=== PATIENT | male | born 1970 | race Caucasian/White ===

== ENCOUNTER 2017-05-07 15:27 | Inpatient (IN) | payer MEDICAID ==
[~2017-05-07] VITALS: Ht 165.1 cm; Wt 76.7 kg
[2017-05-07 15:42] VITALS: BP 159/85
--- NOTE | 2017-05-07 16:00 | NUR ---
PATIENT TO BED 4 AT THIS TIME.
--- NOTE | 2017-05-07 16:29 | NUR ---
PATIENT PRESENTS TO ED WITH left testicular pain denies trauma--swelling redness noted . PT STATES . DENIES N/V/D; SKIN IS PINK/WARM/DRY; AAOX4 WITH EVEN AND STEADY GAIT; LUNGS CLEAR BL; HR EVEN AND REGULAR; PT DENIES ANY FEVER, CP, SOB, OR COUGH AT THIS TIME; PATIENT STATES PAIN OF 8/10 AT THIS TIME; VSS; PATIENT POSITIONED FOR COMFORT; HOB ELEVATED; BEDRAILS UP X2; BED DOWN. ER MD MADE AWARE OF PT STATUS.
[2017-05-07] MEDS ORDERED: KETOROLAC 60 MG/2 ML VIAL IM ONE (16:35)
--- NOTE | 2017-05-07 16:47 | NUR ---
medicated for pain control--pt continues to wait for ultrasound read
[2017-05-07 17:15] LABS: CARBON DIOXIDE 25.1 mmol/L (21-32); POTASSIUM 4.1 mmol/L (3.5-5.1)
[2017-05-07 17:34] LABS: BASOPHILS # (AUTO) 0.2 K/uL (0.00-0.22); BASOPHILS % (AUTO) 1.3 % (0.0-2.0); EOSINOPHILS % (AUTO) 0.1 % (0.0-4.0); HEMATOCRIT 46.5 % (36-52); HEMOGLOBIN 15.3 g/dL (12.0-18.0); LYMPHOCYTES # (AUTO) 1.6 K/uL (2.0-11.5); MEAN CORPUSCULAR HEMOGLOBIN 30 pg (27-31); MEAN CORPUSCULAR HGB CONC 33 g/dL (33-37); MEAN CORPUSCULAR VOLUME 91 fL (80-94); MONOCYTES # (AUTO) 1.2 K/uL (0.8-1.0); MONOCYTES % (AUTO) 7.5 % (1.7-9.3); NEUTROPHILS # (AUTO) 12.9 K/uL (1.8-7.7); NEUTROPHILS % (AUTO) 81.1 % (42.2-75.2); PLATELET COUNT (AUTO) 217 K/uL (140-450); RED BLOOD CELL COUNT(AUTO) 5.11 MIL/uL (4.20-6.10); WHITE BLOOD COUNT (AUTO) 15.9 K/uL (4.8-10.8)
[2017-05-07] MEDS ORDERED: NACL 0.9% 1,000 ML IV ONE (17:55)
[2017-05-07] MEDS ORDERED: CLINDAMYCIN 900 MG in DEXTROSE 5% 100 ML IV ONE (17:55)
[2017-05-07] MEDS: NACL 0.9% 1,000 ML IV SCH (18:07)
[2017-05-07] MEDS ORDERED: DOCUSATE SODIUM 100 MG GELCAP PO PRN (18:10)
[2017-05-07] MEDS ORDERED: ONDANSETRON 4 MG/2 ML VIAL IM/IVP PRN (18:10)
[2017-05-07] MEDS ORDERED: CLINDAMYCIN 900 MG/6 ML VIAL IV ONE (18:16)
--- NOTE | 2017-05-07 18:20 | NUR ---
denies pain at this time---dispo is admission-
[2017-05-07 18:33] LABS: PROTHROMBIN TIME 9.7 secs (10.8-13.4)
[2017-05-07 18:49] LABS: CHOL/HDL RATIO 5.4 (1-4.5); FREE T4 (FREE THYROXINE) 0.92 ng/dL (0.76-1.46); PHOSPHORUS 3.3 mg/dL (2.5-4.9); THYROID STIMULATING HORMONE 0.47 uIU/mL (0.34-3.74)
[2017-05-07 19:07] LABS: APPEARANCE,URINE CLEAR (CLEAR); BILIRUBIN,URINE NEGATIVE (NEGATIVE); BLOOD, URINE TRACE-L (NEGATIVE); COLOR,URINE YELLOW (YELLOW); LEUKOCYTE ESTERASE ,URINE NEGATIVE (NEGATIVE); NITRITE, URINE NEGATIVE (NEGATIVE); UGLUCOSE 3+ (NEGATIVE)
--- NOTE | 2017-05-07 19:07 | NUR ---
Pt report given to JANE SAL. Transfer of care at this time TO TELE RM [id number]
[2017-05-07 19:30] LABS: RBC,URINE 0-5 (RARE) /HPF (0-5); WBC,URINE 0-5 (RARE) /HPF (0-5)
[2017-05-07 20:00] VITALS: BP 140/76
--- NOTE | 2017-05-07 20:00 | NUR ---
PATIENT ADMITTED TO THE UNIT FROM ED. BROUGHT VIA GURNEY. PATIENT ABLE TO AMBULATE TO BED. PATIENT IS AAOX4 ON ROOM AIR, NO SOB OR SIGN OF DISTRESS, IV TO LEFT FA PATENT AND INTACT, SKIN INTACT WITH SCROTAL SWELLING AND REDNESS. PATIENT DENIES PAIN AT THIS TIME. ORIENTED PATIENT TO ROOM AND CALL LIGHT. DISCUSSED PLAN OF CARE WITH PATIENT, PT VERBALIZED UNDERSTANDING. CALL LIGHT WITHIN REACH. WILL CONTINUE TO MONITOR.
[2017-05-07] MEDS ORDERED: LEVOFLOXACIN 500 MG/D5W PREMIX 100 ML IV SCH (21:00)
[2017-05-07] MEDS ORDERED: BLOOD GLUCOSE MONITORING 1 DEV DEV FS SCH (21:00)
--- NOTE | 2017-05-07 21:00 | NUR ---
DR CUELLAR REQUESTED TO CHECK PATIENTS BLOOD SUGAR, RESULTED 250. PER DR, WILL ORDER TO DO BLOOD SUGAR CHECKS Q1H. WILL CONTINUE TO MONITOR
[2017-05-07] MEDS: BLOOD GLUCOSE MONITORING 1 DEV DEV FS SCH ×2 (21:14→22:06)
--- NOTE | 2017-05-07 21:40 | NUR ---
IV ABX ADMINISTERED, PATIENT RESTING IN BED, NO SIGN OF DISTRESS. CALL LIGHT WITHIN REACH. WILL CONTINUE TO MONITOR
[2017-05-07] MEDS: INSULIN LISPRO SLIDING SCALE 100 UNITS/ML VIAL SUBQ PRN (22:08)
--- NOTE | 2017-05-07 22:15 | NUR ---
BLOOD SUGAR CHECK 269 ADMINISTERED INSULIN PER MD POLO SANDHU
--- NOTE | 2017-05-07 23:15 | NUR ---
MD CUELLAR TO CHANGE ORDERS FOR BLOOD SUGARS TO Q2H AND TO LET HER KNOW WHEN BS IS LESS THAN 200. WILL F/U WITH ORDERS.
[2017-05-08] VITALS: BP 136/71
--- NOTE | 2017-05-08 00:10 | NUR ---
VITALS STABLE, NO SIGN OF DISTRESS, CALL LIGHT WITHIN REACH. WILL CONTINUE TO MONITOR.
[2017-05-08] MEDS: BLOOD GLUCOSE MONITORING 1 DEV DEV FS SCH ×7 (01:03→21:53)
[2017-05-08] MEDS: INSULIN LISPRO SLIDING SCALE 100 UNITS/ML VIAL SUBQ PRN ×6 (01:04→22:00)
--- NOTE | 2017-05-08 01:10 | NUR ---
BS CHECK-239, DR CUELLAR SAID TO GO AHEAD AND GIVE ANOTHER DOSE OF INSULIN. ADMINISTERED PER MD ORDER AND ORDERED SLIDING SCALE.
[2017-05-08] MEDS: NACL 0.9% 1,000 ML IV SCH ×6 (02:27→18:21)
[2017-05-08 04:00] VITALS: BP 149/85
--- NOTE | 2017-05-08 04:15 | NUR ---
VITAL SIGNS STABLE, NO SOB OR SIGN OF DISTRESS, CALL LIGHT WITHIN REACH. WILL CONTINUE TO MONITOR
[2017-05-08 06:25] LABS: BASOPHILS # (AUTO) 0.1 K/uL (0.00-0.22); BASOPHILS % (AUTO) 0.7 % (0.0-2.0); EOSINOPHILS # (AUTO) 0.1 K/uL (0-0.4); EOSINOPHILS % (AUTO) 0.3 % (0.0-4.0); LYMPHOCYTES # (AUTO) 1.8 K/uL (2.0-11.5); LYMPHOCYTES % (AUTO) 10.3 % (20.5-51.1); MEAN CORPUSCULAR HEMOGLOBIN 30 pg (27-31); MEAN CORPUSCULAR HGB CONC 33 g/dL (33-37); MEAN CORPUSCULAR VOLUME 91 fL (80-94); MONOCYTES # (AUTO) 1.8 K/uL (0.8-1.0); MONOCYTES % (AUTO) 10.2 % (1.7-9.3); NEUTROPHILS # (AUTO) 13.7 K/uL (1.8-7.7); NEUTROPHILS % (AUTO) 78.5 % (42.2-75.2); PLATELET COUNT (AUTO) 213 K/uL (140-450); RED CELL DISTRIBUTION WIDTH 11.9 % (11.6-13.7)
[2017-05-08 06:49] LABS: ANION GAP 16.9 (8-16); CARBON DIOXIDE 22.6 mmol/L (21-32); CREATININE 0.8 mg/dL (0.7-1.3); POTASSIUM 3.5 mmol/L (3.5-5.1)
--- NOTE | 2017-05-08 07:30 | NUR ---
ENDORSED PATIENT TO DAY RN AT BEDSIDE, PATIENT IN STABLE CONDITION
--- NOTE | 2017-05-08 07:31 | NUR ---
RECEIVED HANDOFF REPORT FROM PM RN. PATIENT A&OX4. PATIENT DENIES PAIN. IV SITE PATENT AND INTACT. NO SIGNS OR SYMPTOMS OF ACUTE DISTRESS NOTED. SAFETY MEASURES ENSURED. CALL LIGHT WITHIN REACH. WILL CONTINUE TO MONITOR.
[2017-05-08 07:36] LABS: WHITE BLOOD COUNT (AUTO) 17.5 K/uL (4.8-10.8)
[2017-05-08 08:00] VITALS: BP 145/86
[2017-05-08 08:34] LABS: T4 (THYROXINE) 6.2 ug/dL (4.5-12.0)
[2017-05-08] MEDS ORDERED: DEXTROSE 50% 50 ML SYR IVP PRN (08:40)
[2017-05-08] MEDS ORDERED: CLINDAMYCIN 900 MG in DEXTROSE 5% 100 ML IV SCH (09:00)
--- NOTE | 2017-05-08 09:05 | NUR ---
PATIENT GIVEN AM MEDS WITH EDUCATION. PATIENT VERBALIZED UNDERSTANDING. PATIENT DENIES PAIN. FAMILY AT BEDSIDE. NO SIGNS OR SYMPTOMS OF ACUTE DISTRESS NOTED. CALL LIGHT WITHIN REACH WILL CONTINUE TO MONITOR.
[2017-05-08] MEDS: LACTOBACILLUS RHAMNOSUS GG 1 EACH CAP PO SCH (09:19)
--- NOTE | 2017-05-08 09:50 | NUR ---
PATIENT HAS BEEN SCREENED AND CATEGORIZED HIGH NUTRITION RISK. PATIENT WILL BE SEEN WITHIN 1-2 DAYS OF ADMISSION. 05/08/17-05/09/[address]
--- NOTE | 2017-05-08 10:43 | NUR ---
05/08/17 RD INITIAL ASSESSMENT COMPLETED PLEASE REFER TO NUTRITION ASSESSMENT UNDER CARE ACTIVITY FOR ESTIMATED NUTRITIONAL NEEDS. 1. CONTINUE 60G CONSISTENT CARBOHYDRATE DIET 2. PROVIDE NUTRITION THERAPY EDUCATION NEEDED 3. RD TO FOLLOW-UP 3-5 DAYS, MODERATE RISK REYNA DIAZ RD
--- NOTE | 2017-05-08 11:12 | NUR ---
PATIENT AWAKE AND ALERT. PATIENT DENIES PAIN. FAMILY AT BEDSIDE. NO SIGNS OR SYMPTOMS OF ACUTE DISTRESS NOTED. CALL LIGHT WITHIN REACH. WILL CONTINUE TO MONITOR.
[2017-05-08 12:00] VITALS: BP 141/82
--- NOTE | 2017-05-08 13:50 | NUR ---
PATIENT SLEEPING. NO SIGNS OR SYMPTOMS OF ACUTE DISTRESS NOTED. CALL LIGHT WITHIN REACH. WILL CONTINUE TO MONITOR.
[2017-05-08 14:05] LABS: BILIRUBIN,DIRECT 0.1 mg/dL (0.0-0.3); TOTAL BILIRUBIN 0.7 mg/dL (0.0-1.0)
[2017-05-08] MEDS: MORPHINE SULFATE 2 MG/ML SYR IVP PRN (15:46)
[2017-05-08 16:00] VITALS: BP 143/81
--- NOTE | 2017-05-08 17:21 | NUR ---
PATIENT AWAKE AND ALERT. PATIENT DENIES PAIN. FAMILY AT BEDSIDE. NO SIGNS OR SYMPTOMS OF ACUTE DISTRESS NOTED. CALL LIGHT WITHIN REACH. WILL CONTINUE TO MONITOR.
[2017-05-08] MEDS: CLINDAMYCIN 600 MG in DEXTROSE 5% 50 ML IV SCH (18:19)
--- NOTE | 2017-05-08 19:23 | NUR ---
ENDORSED PLAN OF CARE TO PM RN. PATIENT STABLE. NO SIGNS OR SYMPTOMS OF ACUTE DISTRESS NOTED. CALL LIGHT WITHIN REACH.
--- NOTE | 2017-05-08 19:24 | NUR ---
RECIEVED REPORT FROM DAY NURSE, PT IN STABLE CONDITION. PT IS AAOX4, PT IS ON RA. PT HAS IV TO L FA 20G, PATENT AND INTACT, INFUSING WELL. PT HAS CELLULITIS OF LEFT TESTICLE, PTS RESPIRATIONS ARE EVEN AND UNLABORED. BOWEL SOUNDS PRESENT IN ALL FOUR QUADRANTS. INITIAL ASSESSMENT COMPLETED, PLAN OF CARE DISCUSSED WITH PT, PT VERBALIZED UNDERSTANDING. ALL SAFETY PRECAUTIONS MET, CALL LIGHT WITHIN REACH, WILL CONTINUE TO MONITOR.
[2017-05-08 20:00] VITALS: BP 154/91
[2017-05-08 20:27] LABS: BARBITURATE, URINE NEG. ng/ml (NEG <=200); BENZODIAZEPINE, URINE NEG. ng/mL (NEG <=200); CANNABINOID, URINE NEG. ng/mL (NEG <=50); COCAINE, URINE NEG. ng/mL (NEG <=300); OPIATE, URINE NEG. ng/mL (NEG <=2000); PHENCYCLIDINE SCREEN,URINE NEG. ng/mL (NEG <=25)
[2017-05-08] MEDS: LEVOFLOXACIN 750 MG/D5W PREMIX 150 ML IV SCH (21:44)
[2017-05-08] MEDS: ACETAMINOPHEN 325 MG TAB PO PRN (22:03)
--- NOTE | 2017-05-08 22:04 | NUR ---
PT HAS FEVER OF 100.8, MEDICATION ADMINISTERED PER MD ORDERS, ICE PACKS IN PLACE, WILL REASSESS.
--- NOTE | 2017-05-08 23:04 | NUR ---
REASSESSED PTS TEMP. PT TEMP 98.3, AFEBRILE. WILL CONTINUE TO MONITOR.
[2017-05-09] VITALS: BP 130/77
[2017-05-09] MEDS: CLINDAMYCIN 600 MG in DEXTROSE 5% 50 ML IV SCH ×3 (00:08→06:20)
--- NOTE | 2017-05-09 00:10 | NUR ---
PTS VITALS STABLE, NO S/S OF DISTRESS NOTED. PT RESTING IN BED COMFORTABLE. ALL SAFETY PRECAUTIONS MET, CALL LIGHT WITHIN REACH, WILL CONTINUE TO MONITOR.
--- NOTE | 2017-05-09 03:30 | NUR ---
PT RESTING COMFORTABLY IN BED. NO S/S OF DISTRESS NOTED. PT IS AFEBRILE. CALL LIGHT WITHIN REACH, ALL SAFETY PRECAUTIONS MET, WILL CONTINUE TO MONITOR.
[2017-05-09 04:00] VITALS: BP 138/57
[2017-05-09] MEDS: BLOOD GLUCOSE MONITORING 1 DEV DEV FS SCH ×4 (06:17→20:37)
[2017-05-09 06:18] LABS: BASOPHILS # (AUTO) 0.1 K/uL (0.00-0.22); BASOPHILS % (AUTO) 0.4 % (0.0-2.0); EOSINOPHILS # (AUTO) 0.1 K/uL (0-0.4); EOSINOPHILS % (AUTO) 0.5 % (0.0-4.0); HEMATOCRIT 38.6 % (36-52); HEMOGLOBIN 13.3 g/dL (12.0-18.0); LYMPHOCYTES # (AUTO) 1.5 K/uL (2.0-11.5); LYMPHOCYTES % (AUTO) 9.3 % (20.5-51.1); MEAN CORPUSCULAR HEMOGLOBIN 31 pg (27-31); MEAN CORPUSCULAR HGB CONC 34 g/dL (33-37); MEAN CORPUSCULAR VOLUME 90 fL (80-94); MONOCYTES # (AUTO) 1.4 K/uL (0.8-1.0); MONOCYTES % (AUTO) 8.3 % (1.7-9.3); NEUTROPHILS # (AUTO) 13.3 K/uL (1.8-7.7); NEUTROPHILS % (AUTO) 81.5 % (42.2-75.2); PLATELET COUNT (AUTO) 229 K/uL (140-450); RED BLOOD CELL COUNT(AUTO) 4.28 MIL/uL (4.20-6.10)
[2017-05-09 06:39] LABS: ANION GAP 18.2 (8-16); CARBON DIOXIDE 20.5 mmol/L (21-32); CREATININE 0.7 mg/dL (0.7-1.3); MAGNESIUM 1.9 mg/dL (1.8-2.4); PHOSPHORUS 3.3 mg/dL (2.5-4.9); POTASSIUM 3.7 mmol/L (3.5-5.1)
[2017-05-09] MEDS: INSULIN LISPRO SLIDING SCALE 100 UNITS/ML VIAL SUBQ PRN ×4 (06:52→20:39)
[2017-05-09 07:14] LABS: WHITE BLOOD COUNT (AUTO) 16.4 K/uL (4.8-10.8)
--- NOTE | 2017-05-09 07:32 | NUR ---
ENDORSED PLAN OF CARE TO AM NURSE AT BEDSIDE, PT IN STABLE CONDITION.
--- NOTE | 2017-05-09 07:33 | NUR ---
RECEIVED REPORT FROM SPEECH LANGUAGE PATHOLOGY ASSISTANT NURSE AT BEDSIDE FOR CONTINUITY OF CARE. PT IS AWAKE AND ORIENTED. INTRODUCED SELF AND UPDATED BOARD. PT HAS NO COMPLAINTS AT THIS TIME. WILL CONTINUE TO WITH PLANNED CARE AND MONITOR PT.
[2017-05-09 08:00] VITALS: BP 140/85
--- NOTE | 2017-05-09 08:00 | NUR ---
APPLIED SCROTAL SUPPORT FOR PT TO RELIEVE PAIN IN SCROTUM. PT STATED PAIN IS PRESENT WHEN HE AMBULATES. PT GOT UP TO USE BATHROOM. VS: WNL. PT HAS NOT COMPLAINTS AT THIS TIME WILL CONTINUE TO MONITOR.
[2017-05-09] MEDS: metFORMIN 500 MG TAB PO SCH ×2 (08:42→17:01)
[2017-05-09] MEDS: ECOTRIN 81 MG TABEC PO SCH (08:43)
[2017-05-09] MEDS: LACTOBACILLUS RHAMNOSUS GG 1 EACH CAP PO SCH (08:44)
[2017-05-09] MEDS: ATORVASTATIN 20 MG TAB PO SCH (08:45)
[2017-05-09] MEDS: INSULIN DETEMIR 100 UNITS/ML 10 ML VIAL SUBQ SCH (09:08)
[2017-05-09] MEDS: NACL 0.9% 1,000 ML IV SCH (11:09)
[2017-05-09 12:00] VITALS: BP 167/96
[2017-05-09] MEDS: MORPHINE SULFATE 2 MG/ML SYR IVP PRN (13:37)
--- NOTE | 2017-05-09 13:37 | NUR ---
CHECKED ON PT IN ROOM. PT GOT UP TO USE BATHROOM. STATED HE HAD A HEADACHE AND PAIN ON SCROTUM 03/26. ADMINISTERED MORPHINE FOR PAIN. PT TOLERATED WELL. PT IS RESTING IN BED NOW. WILL CONTINUE TO MONITOR.
--- NOTE | 2017-05-09 15:15 | NUR ---
PT'S FAMILY MEMBER IS AT BEDSIDE. INSTRUCTED PT TO USE INCENTIVE SPIROMETER. PT DEMONSTRATED TEACHING AND VERBALIZED UNDERSTANDING OF INCENTIVE SPIROMETER. PT DENIES PAIN AT THIS TIME. WILL CONTINUE TO MONITOR.
[2017-05-09 16:00] VITALS: BP 152/90
[2017-05-09] MEDS: ACETAMINOPHEN 325 MG TAB PO PRN (17:15)
--- NOTE | 2017-05-09 17:20 | NUR ---
PT HAD TEMP 100.2 F. ADMINISTERED TYLENOL FOR FEVER. PT'S BS WAS 211. ADMINISTERED 4 UNITS OF INSULIN PER SLIDING SCALE. PT TOLERATED MEDS WELL. PT'S FAMILY MEMBER IS AT BEDSIDE. PT CONTINUED TO USE INCENTIVE SPIROMETER Q1H DEMONSTRATED. NO OTHER COMPLAINTS AT THIS TIME. WILL CONTINUE TO MONITOR.
--- NOTE | 2017-05-09 18:34 | NUR ---
RECHECKED TEMP 97.8 F. PT HAS NO FEVER AT THIS TIME. PT DENIES PAIN. RESTING COMFORTABLY IN BED WITH VISITORS AT BEDSIDE.
--- NOTE | 2017-05-09 19:05 | NUR ---
ENDORSED PT TO ASBESTOS HANDLER NURSE AT BEDSIDE FOR CONTINUITY OF CARE. PT IS IN STABLE CONDITION.
--- NOTE | 2017-05-09 19:25 | NUR ---
RECEIVED FROM AM RN IN BED SITTING UP WITH A MALE VISITOR. ABLE TO VERBALIZE SIMPLE NEEDS IN CZECH AND A LITTLE OF YI. CALL LIGHT WITH IN REACH AND CARE PLANS FOR THE NIGHT DISCUSSED WITH HIM. TELEMETRY MONITORING. NO COMPLAINTS OF ANY PAIN AT THIS TIME. DX. OF LEFT TESTICULAR CELLULITIS. A/O X 4. ROM X 4. ABLE TO U SE CALL LIGHT FOR HELP.
[2017-05-09] MEDS: LEVOFLOXACIN 750 MG/D5W PREMIX 150 ML IV SCH (20:37)
[2017-05-09 21:56] VITALS: BP 153/80
[2017-05-09] MEDS: HYDROcodone/APAP 7.5/325 MG 1 TAB PO PRN (22:04)
--- NOTE | 2017-05-09 22:04 | NUR ---
PT. AWAKE AND WENT RESTROOM. COMPLAINED OF TESTICULAR PAIN. MEDICATED REQUESTED. A/O X 4. ROM X 4. IVF SITE LFA# 20 INTACT AND NO INFILTRATION NOTED. CALL LIGHT WITH IN REACH.
--- NOTE | 2017-05-09 22:19 | NUR ---
COMPLAINED OF NAUSEA. MEDICATED WITH ZOFRAN IVP ORDERED. ABLE TO VERBALIZE WELL IN CROATIAN AND GIBRALTARIAN.
--- NOTE | 2017-05-10 00:04 | NUR ---
PT. SLEEPING. WOKE UP EASILY WHEN VITAL SIGNS TAKEN. NO COMPLAINTS DONE. WENT BACK TO SLEEP AFTER. DENIES FURTHER PAIN. TELEMETRY MONITORING. CALL LIGHT WITH IN REACH.
[2017-05-10 00:09] VITALS: BP 144/77
[2017-05-10 04:22] VITALS: BP 140/68
--- NOTE | 2017-05-10 04:44 | NUR ---
SLEEPING WELL. NO COMPLAINTS DONE AT THIS TIME. WAKES UP EASILY WHEN TOUCHED. VITAL SIGNS TAKEN. DENIES PAIN AT THIS TIME. SLEPT BACK.AFEBRILE.
[2017-05-10] MEDS: NACL 0.9% 1,000 ML IV SCH ×2 (05:21→17:11)
[2017-05-10] MEDS: BLOOD GLUCOSE MONITORING 1 DEV DEV FS SCH ×4 (05:21→20:38)
[2017-05-10] MEDS: INSULIN LISPRO SLIDING SCALE 100 UNITS/ML VIAL SUBQ PRN ×4 (05:30→20:39)
[2017-05-10] MEDS: ACETAMINOPHEN 325 MG TAB PO PRN (07:00)
[2017-05-10 07:14] LABS: BASOPHILS # (AUTO) 0.4 K/uL (0.00-0.22); BASOPHILS % (AUTO) 2.5 % (0.0-2.0); EOSINOPHILS # (AUTO) 0.1 K/uL (0-0.4); EOSINOPHILS % (AUTO) 0.7 % (0.0-4.0); HEMATOCRIT 41.8 % (36-52); HEMOGLOBIN 14.1 g/dL (12.0-18.0); LYMPHOCYTES # (AUTO) 1.3 K/uL (2.0-11.5); LYMPHOCYTES % (AUTO) 8.2 % (20.5-51.1); MEAN CORPUSCULAR HEMOGLOBIN 30 pg (27-31); MEAN CORPUSCULAR HGB CONC 34 g/dL (33-37); MEAN CORPUSCULAR VOLUME 89 fL (80-94); MONOCYTES # (AUTO) 0.8 K/uL (0.8-1.0); NEUTROPHILS # (AUTO) 13.6 K/uL (1.8-7.7); NEUTROPHILS % (AUTO) 83.6 % (42.2-75.2); PLATELET COUNT (AUTO) 269 K/uL (140-450); RED BLOOD CELL COUNT(AUTO) 4.69 MIL/uL (4.20-6.10); RED CELL DISTRIBUTION WIDTH 12.1 % (11.6-13.7)
--- NOTE | 2017-05-10 07:15 | NUR ---
ENDORSED TO THE AM RN FOR CONTINUITY OF CARE AWAKE AND ALERT. NO COMPLAINTS DONE. TELEMETRY MONITORING. INDEPENDENT.
[2017-05-10 07:19] LABS: ANION GAP 16.2 (8-16); CARBON DIOXIDE 24.2 mmol/L (21-32); CREATININE 0.7 mg/dL (0.7-1.3); POTASSIUM 3.4 mmol/L (3.5-5.1)
[2017-05-10 07:23] LABS: MAGNESIUM 1.8 mg/dL (1.8-2.4); PHOSPHORUS 3.6 mg/dL (2.5-4.9)
--- NOTE | 2017-05-10 07:26 | NUR ---
RECEIVED PT IN BED. AWAKE. ALERT ORIENTEDX4. NO SOB NOTED. POSITIVE BOWEL SOUNDS NOTED ON FOUR QUADRANTS. WILL REASSESS LEFT SCROTAL PAIN, PAIN MED GIVEN PER PUSHER OPERATOR. SAFETY PRECAUTION IN PLACE. CALL LIGHT WITHIN REACH. PT AMBULATORY.
[2017-05-10 07:32] LABS: WHITE BLOOD COUNT (AUTO) 16.2 K/uL (4.8-10.8)
[2017-05-10 08:00] VITALS: BP 149/86
[2017-05-10] MEDS ORDERED: POTASSIUM CHLORIDE 10 MEQ TABER PO SCH (08:05)
[2017-05-10] MEDS: ECOTRIN 81 MG TABEC PO SCH (08:42)
[2017-05-10] MEDS: LISINOPRIL 5 MG TAB PO SCH (08:42)
[2017-05-10] MEDS: ATORVASTATIN 20 MG TAB PO SCH (08:42)
[2017-05-10] MEDS: LACTOBACILLUS RHAMNOSUS GG 1 EACH CAP PO SCH (08:42)
[2017-05-10] MEDS: METOPROLOL 25 MG TAB PO SCH ×2 (08:44→20:35)
[2017-05-10] MEDS: metFORMIN 500 MG TAB PO SCH ×2 (08:44→17:11)
[2017-05-10] MEDS: INSULIN DETEMIR 100 UNITS/ML 10 ML VIAL SUBQ SCH (08:49)
--- NOTE | 2017-05-10 10:00 | NUR ---
PT IN BED AWAKE. NO SOB NOTED. DENIES ANY PAIN OR DISCOMFORT AT THIS TIME.
[2017-05-10 12:00] VITALS: BP 126/80
[2017-05-10 16:00] VITALS: BP 154/83
--- NOTE | 2017-05-10 17:00 | NUR ---
FAMILY AT BED SIDE. PT DENIES ANY PAIN OR DISCOMFORT AT THIS TIME. NO SOB NOTED.
--- NOTE | 2017-05-10 19:35 | NUR ---
RECEIVED FROM AM RN IN BED AWAKE AND WATCHING TV. NO COMPLAINTS DONE. TELEMETRY MONITORING. NO COMPLAINTS DONE AT THIS TIME. CALL LIGHT WITH IN REACH . A/O X 4. ROM X 4.
--- NOTE | 2017-05-10 19:39 | NUR ---
PT KEPT CLEAN, DRY AND COMFORTABLE, NEEDS ATTENDED. ENDORSED TO NEXT SHIFT ON STABLE CONDITION FOR CONTINUITY OF CARE. DENIES ANY PAIN OR DISCOMFORT AT THIS TIME. NO SOB NOTED.
[2017-05-10 20:28] VITALS: BP 144/80
[2017-05-10] MEDS: LEVOFLOXACIN 750 MG/D5W PREMIX 150 ML IV SCH (20:34)
[2017-05-10] MEDS: HYDROcodone/APAP 7.5/325 MG 1 TAB PO PRN (20:34)
--- NOTE | 2017-05-10 21:00 | NUR ---
PT. REQUESTED FOR PAIN RELIEVER AT THIS TIME RT STARTING TO HAVE PAIN IN THE TESTICLE. "I WENT URINATE AND IT HURTS". MEDICATED REQUESTED AND ORDERED. A/O X 4, ROM X 4. CLEAR SPEECH.
[2017-05-11 01:07] VITALS: BP 140/66
--- NOTE | 2017-05-11 01:10 | NUR ---
SLEEPING. WAKES UP WHEN TOUCHED. ABLE TO VERBALIZE NEEDS WELL. NO SOB. DENIES PAIN AT THIS TIME.
--- NOTE | 2017-05-11 04:00 | NUR ---
SLEEPING. NO RESTLESSNESS. TELEMETRY MONITORING.
[2017-05-11 04:44] VITALS: BP 131/78
[2017-05-11] MEDS: NACL 0.9% 1,000 ML IV SCH (06:01)
[2017-05-11] MEDS: BLOOD GLUCOSE MONITORING 1 DEV DEV FS SCH ×2 (06:06→11:30)
[2017-05-11 06:07] LABS: BASOPHILS # (AUTO) 0.2 K/uL (0.00-0.22); BASOPHILS % (AUTO) 1.3 % (0.0-2.0); EOSINOPHILS # (AUTO) 0.2 K/uL (0-0.4); EOSINOPHILS % (AUTO) 1.6 % (0.0-4.0); HEMATOCRIT 38.1 % (36-52); LYMPHOCYTES # (AUTO) 1.7 K/uL (2.0-11.5); LYMPHOCYTES % (AUTO) 12.8 % (20.5-51.1); MEAN CORPUSCULAR HEMOGLOBIN 31 pg (27-31); MEAN CORPUSCULAR HGB CONC 34 g/dL (33-37); MEAN CORPUSCULAR VOLUME 90 fL (80-94); MONOCYTES # (AUTO) 1.4 K/uL (0.8-1.0); MONOCYTES % (AUTO) 10.5 % (1.7-9.3); NEUTROPHILS # (AUTO) 9.9 K/uL (1.8-7.7); NEUTROPHILS % (AUTO) 73.8 % (42.2-75.2); PLATELET COUNT (AUTO) 283 K/uL (140-450); RED BLOOD CELL COUNT(AUTO) 4.22 MIL/uL (4.20-6.10); RED CELL DISTRIBUTION WIDTH 11.8 % (11.6-13.7); WHITE BLOOD COUNT (AUTO) 13.4 K/uL (4.8-10.8)
[2017-05-11] MEDS: INSULIN LISPRO SLIDING SCALE 100 UNITS/ML VIAL SUBQ PRN ×2 (06:07→13:33)
[2017-05-11 06:27] LABS: ANION GAP 15.9 (8-16); CARBON DIOXIDE 23.6 mmol/L (21-32); CREATININE 0.7 mg/dL (0.7-1.3); POTASSIUM 3.5 mmol/L (3.5-5.1)
[2017-05-11] MEDS: ACETAMINOPHEN 325 MG TAB PO PRN (06:30)
--- NOTE | 2017-05-11 06:31 | NUR ---
BEEN SLEEPING WELL THIS SHIFT. EREQUESTED FOR PAIN RELIEVER RT HEAD HURTS. MEDICATED WITH TYLENOL ORDERED AND REQUESTED.
--- NOTE | 2017-05-11 07:20 | NUR ---
RECEIVED PT FROM DOG BATHER NURSE AT THE BED SIDE. PT ALERT AND ORIENTED; GERMAN SPEAKING; PT LEFT F/A 20G; RUNNING NS @ 80 ML/HR; NO COMPLAINING OF PAIN @ THIS TIME; PT IN NO DISTRESS. CALL LIGHT WITHIN REACH, WILL CONTINUE MONITOR.
[2017-05-11 08:00] VITALS: BP 132/79
[2017-05-11] MEDS: LACTOBACILLUS RHAMNOSUS GG 1 EACH CAP PO SCH (09:02)
[2017-05-11] MEDS: metFORMIN 500 MG TAB PO SCH (09:03)
[2017-05-11] MEDS: ATORVASTATIN 20 MG TAB PO SCH (09:04)
[2017-05-11] MEDS: ECOTRIN 81 MG TABEC PO SCH (09:04)
[2017-05-11] MEDS: METOPROLOL 25 MG TAB PO SCH (09:05)
[2017-05-11] MEDS: LISINOPRIL 5 MG TAB PO SCH (09:05)
[2017-05-11] MEDS: INSULIN DETEMIR 100 UNITS/ML 10 ML VIAL SUBQ SCH (09:09)
--- NOTE | 2017-05-11 09:30 | NUR ---
PT IN STABLE CONDITION. NO COMPLAINTS. CALL LIGHT WITHIN REACH. WILL CONTINUE TO MONITOR.
[2017-05-11] MEDS ORDERED: ASPI-1173 PO (09:57)
[2017-05-11] MEDS ORDERED: LEVO750T2 PO (09:57)
[2017-05-11] MEDS ORDERED: LACT10CA PO (09:57)
[2017-05-11] MEDS ORDERED: LISI-424 PO (09:57)
[2017-05-11] MEDS ORDERED: METF500T4 PO (09:57)
[2017-05-11] MEDS ORDERED: ATOR20TA40 PO (09:57)
[2017-05-11] MEDS ORDERED: LEVEMIR SUBQ (09:57)
[2017-05-11 10:44] VITALS: BP 132/79
--- NOTE | 2017-05-11 11:50 | NUR ---
PT EATING LUNCH IN BED. NO DISTRESS NOTED. CALL LIGHT WITHIN REACH. WILL CONTINUE TO MONITOR.
[2017-05-11 12:00] VITALS: BP 133/78
--- NOTE | 2017-05-11 13:30 | NUR ---
PT IN STABLE CONDITION. NO COMPLAINTS AT THIS TIME. CALL LIGHT WITHIN REACH. WILL CONTINUE TO MONITOR.
--- NOTE | 2017-05-11 15:00 | NUR ---
USED TRANSLATION PHONE #[phone] TO GIVE DC INSTRUCTION AND DIABETES EDUCATION AND MED EDUCATION TO PT. DEMONSTRATED HOW TO USE GLUCOMETER. PT VERBALIZED UNDERSTANDING. SIGNED APPROPRIATE PAPERWORK. CALL LIGHT WITHIN REACH. WILL CONTINUE TO MONITOR.
--- NOTE | 2017-05-11 15:30 | NUR ---
WHEELED PT OUT OF UNIT. REMOVED IV CANNULA INTACT. REMOVED ALL WRIST BANDS. PT IN STABLE CONDITION.
[2017-05-11] MEDS ORDERED: metFORMIN 850 MG TAB PO SCH (17:00)
== END 2017-05-11 15:30 | disposition home or self-care (01) | DRG 720 ==
LOC: MED 15:27 → MTU 18:02
PROVIDERS: ADMIT Student in an Organized Health Care Education/Training Program; ATTEND Student in an Organized Health Care Education/Training Program
DX: A41.9 Sepsis, unspecified organism (principal); N17.0 Acute kidney failure with tubular necrosis; E44.0 Moderate protein-calorie malnutrition; E11.65 Type 2 diabetes mellitus with hyperglycemia; D68.59 Other primary thrombophilia; N45.3 Epididymo-orchitis; K76.0 Fatty (change of) liver, not elsewhere classified; F17.210 Nicotine dependence, cigarettes, uncomplicated; E78.2 Mixed hyperlipidemia; J98.11 Atelectasis; R31.9 Hematuria, unspecified; E87.6 Hypokalemia; I51.7 Cardiomegaly; Z68.28 Body mass index [BMI] 28.0-28.9, adult; L03.818 Cellulitis of other sites; Z83.3 Family history of diabetes mellitus
CPT/HCPCS: 36415; 71020; 76870; 80048; 80076; 80305; 81001; 82150; 82948; 83036; 83605; 83690; 83735; 83880; 84100; 84436; 84439; 84443; 84479; 84484; 85025; 85610; 85730; 87040; 87081; 87086; 93005; 93925; 93970; 96372; 99285; J1815; J1885; J1956; J2270; J2405; J3490; J7030; J7060; Q0092; Q9967

== ENCOUNTER 2017-05-20 11:27 | Inpatient (IN) | payer MEDICAID ==
[~2017-05-20] VITALS: Ht 162.6 cm; Wt 69.5 kg
[~2017-05-20 11:27] MED LIST: ASPI-1173 PO; ATOR20TA40 PO; LACT10CA PO; LEVEMIR SUBQ; LEVO750T2 PO; LISI-424 PO; METF500T4 PO
[2017-05-20 11:40] VITALS: BP 114/55
--- NOTE | 2017-05-20 12:09 | NUR ---
Patient to bed 07.
--- NOTE | 2017-05-20 12:10 | NUR ---
PT PRESENTS TO ER W/C/O TESTICULAR PAIN X5 DAYS. PT STATES HE WAS HOSPITALIZED AT [facility] 05/07-05/11 FOR TESTICULAR CELLULITIS, SAW HIS PCP THIS AM AND WAS SENT TO ER FOR EVALUATION, BLOOD AND PUS WAS OBSERVED OOZING FROM RASHY AREAS. HX DM, HTN, HYPERLIPIDEMIA. DENIES N/V/D; SKIN IS PINK/WARM/DRY; AAOX4 WITH EVEN AND STEADY GAIT; LUNGS CLEAR BL; PATIENT STATES PAIN OF 3/10 AT THIS TIME; PATIENT POSITIONED FOR COMFORT; HOB ELEVATED; BEDRAILS UP X2; BED DOWN. ER MD MADE AWARE OF PT STATUS.
[2017-05-20] MEDS ORDERED: PIPERACILLIN/TAZOBACTAM 3.375 GM in DEXTROSE 5% 50 ML IV ONE (12:25)
[2017-05-20] MEDS ORDERED: NACL 0.9% 1,000 ML IV ONE (12:25)
[2017-05-20] MEDS ORDERED: VANCOMYCIN PER PHARMACY MC PRN (12:25)
[2017-05-20] MEDS ORDERED: VANCOMYCIN 1GM/DEXT 5% PREMIX 200 ML IV ONE (12:25)
--- NOTE | 2017-05-20 12:25 | NUR ---
Dr. Puri evaluating patient at bedside.
[2017-05-20 12:50] LABS: BASOPHILS # (AUTO) 0.3 K/uL (0.00-0.22); BASOPHILS % (AUTO) 2.7 % (0.0-2.0); EOSINOPHILS # (AUTO) 0.1 K/uL (0-0.4); EOSINOPHILS % (AUTO) 0.8 % (0.0-4.0); HEMATOCRIT 44.7 % (36-52); HEMOGLOBIN 14.7 g/dL (12.0-18.0); LYMPHOCYTES # (AUTO) 2.1 K/uL (2.0-11.5); LYMPHOCYTES % (AUTO) 19.1 % (20.5-51.1); MEAN CORPUSCULAR HEMOGLOBIN 29 pg (27-31); MEAN CORPUSCULAR HGB CONC 33 g/dL (33-37); MEAN CORPUSCULAR VOLUME 89 fL (80-94); MONOCYTES # (AUTO) 0.6 K/uL (0.8-1.0); MONOCYTES % (AUTO) 5.7 % (1.7-9.3); NEUTROPHILS # (AUTO) 7.9 K/uL (1.8-7.7); NEUTROPHILS % (AUTO) 71.7 % (42.2-75.2); PLATELET COUNT (AUTO) 634 K/uL (140-450); RED CELL DISTRIBUTION WIDTH 11.9 % (11.6-13.7)
[2017-05-20] MEDS ORDERED: PIPERACILLIN/TAZOBACTAM 3.375 GM VIAL IV ONE (12:54)
[2017-05-20 13:03] LABS: ANION GAP 14.5 (8-16); CARBON DIOXIDE 29.4 mmol/L (21-32); CREATININE 1.3 mg/dL (0.7-1.3); POTASSIUM 4.9 mmol/L (3.5-5.1)
[2017-05-20 13:09] LABS: ALBUMIN 3.2 g/dL (3.4-5.0); TOTAL BILIRUBIN 0.3 mg/dL (0.0-1.0)
[2017-05-20] MEDS ORDERED: ONDANSETRON 4 MG/2 ML VIAL IM/IVP PRN (13:25)
[2017-05-20] MEDS ORDERED: HYDROcodone/APAP 7.5/325 MG 1 TAB PO PRN (13:25)
[2017-05-20] MEDS ORDERED: MORPHINE SULFATE 2 MG/ML SYR IVP PRN (13:25)
[2017-05-20] MEDS ORDERED: KETOROLAC 30 MG/ML VIAL IVP PRN (13:25)
[2017-05-20] MEDS ORDERED: DOCUSATE SODIUM 100 MG GELCAP PO PRN (13:25)
[2017-05-20] MEDS ORDERED: ACETAMINOPHEN 325 MG TAB PO PRN (13:25)
--- NOTE | 2017-05-20 14:02 | NUR ---
XRAY at bedside.
[2017-05-20 14:12] LABS: CHOL/HDL RATIO 3.8 (1-4.5); HDL CHOLESTEROL 30 mg/dL (40-60); LDL (CALC) 57 mg/dL (60-100); MAGNESIUM 1.7 mg/dL (1.8-2.4); PHOSPHORUS 4.2 mg/dL (2.5-4.9); THYROID STIMULATING HORMONE 1.16 uIU/mL (0.34-3.74); TRIGLYCERIDES 135 mg/dL (30-150)
--- NOTE | 2017-05-20 14:12 | NUR ---
GAVE REPORT TO JONELLE VELARDE, HE'S ON BREAK , WILL CALL BACK IN 10 MINS.
--- NOTE | 2017-05-20 14:27 | NUR ---
Patient will be admitted to care of DR NAJERA. Admited to TELE. Will go to [id number]. Belongings list completed. Report to JONELLE VELARDE.
[2017-05-20 14:34] LABS: LACTATE DEHYDROGENASE 195 U/L (85-227)
[2017-05-20 14:48] VITALS: BP 118/69
[2017-05-20 14:56] LABS: APPEARANCE,URINE CLEAR (CLEAR); BILIRUBIN,URINE NEGATIVE (NEGATIVE); BLOOD, URINE NEGATIVE (NEGATIVE); COLOR,URINE YELLOW (YELLOW); LEUKOCYTE ESTERASE ,URINE NEGATIVE (NEGATIVE); NITRITE, URINE NEGATIVE (NEGATIVE); UGLUCOSE NEGATIVE (NEGATIVE)
--- NOTE | 2017-05-20 15:00 | NUR ---
PT ADMITTED TO THE UNIT FROM ER. PT AWAKE, ALERT, AND ORIENTED. PT SHOWED NO S/S OF ACUTE DISTRESS ON ROOM AIR. PT DENIES PAIN. PT'S IV NOTED ON THE RIGHT ARM, 22 GAUGE. MRSA SCREENING DONE. SWELLING NOTED ON THE SCROTUM. THREE PUS LIKE BOILS NOTED ON THE SCROTUM. MODERATE DRAINAGE NOTED. WOUND CLEANSED W/ NS AND PAT DRY WITH GAUZE. WOUND COVERED WITH GAUZE. PT PLACED ON TELE MONITOR. BED LOWERED, CALL LIGHT WITHIN REACH.
[2017-05-20 15:06] LABS: BARBITURATE, URINE NEG. ng/ml (NEG <=200); BENZODIAZEPINE, URINE NEG. ng/mL (NEG <=200); CANNABINOID, URINE NEG. ng/mL (NEG <=50); COCAINE, URINE NEG. ng/mL (NEG <=300); OPIATE, URINE NEG. ng/mL (NEG <=2000); PHENCYCLIDINE SCREEN,URINE NEG. ng/mL (NEG <=25)
[2017-05-20 15:12] LABS: RBC,URINE 0-5 (RARE) /HPF (0-5); WBC,URINE 0-5 (RARE) /HPF (0-5)
[2017-05-20 15:13] LABS: URINE AMORPHOUS URATE 1+ /HPF (None Seen)
[2017-05-20] MEDS: NACL 0.9% 1,000 ML IV SCH ×2 (15:38→22:28)
[2017-05-20] MEDS ORDERED: MAG SULF 2000 MG/WATER PREMIX 100 ML IV ONE (15:45)
--- NOTE | 2017-05-20 19:19 | NUR ---
ENDORSED PLAN OF CARE TO PM SHIFT. PATIENT IN STABLE CONDITION. NO S/S OF ACUTE DISTRESS NOTED. CALL LIGHT WITHIN REACH.
--- NOTE | 2017-05-20 19:20 | NUR ---
PATIENT REPORT RECEIVED FROM MORNING NURSE. PATIENT IS AWAKE, ALERT AND ORIENTED. NO SIGNS AND SYMPTOMS OF DISTRESS NOTED. NO COMPLAINTS OF PAIN AT THIS TIME. IV SITE NOTED ON RIGHT ARM, IVF INFUSING WELL. BED IN LOWEST POSITION, SIDE RAILS UP AND CALL LIGHT WITHIN REACH. WILL CONTINUE TO MONITOR.
[2017-05-20 20:00] VITALS: BP 110/67
[2017-05-20] MEDS: CLINDAMYCIN 900 MG in DEXTROSE 5% 100 ML IV SCH (20:06)
--- NOTE | 2017-05-20 22:00 | NUR ---
CHECKED ON PATIENT, PATIENT IS ASLEEP. NO SIGNS AND SYMPTOMS OF DISTRESS NOTED. BED IN LOWEST POSITION, SIDE RAILS UP AND CALL LIGHT WITHIN REACH.
[2017-05-21] VITALS: BP 113/67
[2017-05-21] MEDS ORDERED: DEXTROSE 50% 50 ML SYR IVP PRN (01:20)
[2017-05-21 03:48] VITALS: BP 108/69
[2017-05-21] MEDS: CLINDAMYCIN 900 MG in DEXTROSE 5% 100 ML IV SCH ×3 (04:03→20:53)
[2017-05-21 06:18] LABS: T4 (THYROXINE) 8.1 ug/dL (4.5-12.0)
[2017-05-21 06:19] LABS: BASOPHILS # (AUTO) 0.3 K/uL (0.00-0.22); BASOPHILS % (AUTO) 2.9 % (0.0-2.0); EOSINOPHILS # (AUTO) 0.2 K/uL (0-0.4); EOSINOPHILS % (AUTO) 2.6 % (0.0-4.0); HEMATOCRIT 40.2 % (36-52); HEMOGLOBIN 13.7 g/dL (12.0-18.0); LYMPHOCYTES # (AUTO) 2.2 K/uL (2.0-11.5); LYMPHOCYTES % (AUTO) 22.6 % (20.5-51.1); MEAN CORPUSCULAR HEMOGLOBIN 31 pg (27-31); MEAN CORPUSCULAR HGB CONC 34 g/dL (33-37); MEAN CORPUSCULAR VOLUME 89 fL (80-94); MONOCYTES # (AUTO) 0.9 K/uL (0.8-1.0); NEUTROPHILS % (AUTO) 62.9 % (42.2-75.2); PLATELET COUNT (AUTO) 544 K/uL (140-450); WHITE BLOOD COUNT (AUTO) 9.6 K/uL (4.8-10.8)
[2017-05-21 06:35] LABS: ANION GAP 11.7 (8-16); CARBON DIOXIDE 28.6 mmol/L (21-32); CREATININE 0.9 mg/dL (0.7-1.3); POTASSIUM 4.3 mmol/L (3.5-5.1)
[2017-05-21] MEDS: INSULIN LISPRO SLIDING SCALE 100 UNITS/ML VIAL SUBQ PRN ×2 (06:39→21:00)
[2017-05-21] MEDS: BLOOD GLUCOSE MONITORING 1 DEV DEV FS SCH ×4 (06:39→20:52)
--- NOTE | 2017-05-21 07:37 | NUR ---
PATIENT REPORT GIVEN TO MORNING NURSE. PATIENT IN STABLE CONDITION
--- NOTE | 2017-05-21 07:38 | NUR ---
REPORT RECEIVED FROM OUTSOLE COMPRESSOR, PT AAOX4, RESP EVEN UNLABORED, SKIN WARM DRY COLOR WNL, PT REPORTS NO PAIN OR DISCOMFORT, PLAN OF CARE REVIEWED, INTIAL ASSESSMENT DONE, CALL CHAN WITHIN REACH, SIDE RAILS UP, BED LOCKED IN LOW POSITION, WILL CONTINUE TO MONITOR.
[2017-05-21 08:00] VITALS: BP 109/57
--- NOTE | 2017-05-21 09:30 | NUR ---
PATIENT LYING IN BED. NO DISTRESS NOTED. RESPIRATIONS EVEN, UNLABORED, ROOM AIR. DENIES ANY PAIN AT THIS TIME. MEDICATIONS DUE GIVEN. SCROTAL WOUND DRAINAGE CULTURE COLLECTED AND SENT TO LAB. SCROTAL ABSCESS GAUZE DRESSING CHANGED: CLEANSED WITH NS, PAT DRIED, COVERED WITH GAUZE, AND SECURED WITH TAPE. IV IS PATENT AND INFUSING. SAFETY MEASURES IN PLACE, CALL LIGHT WITHIN REACH. WILL CONTINUE TO MONITOR.
[2017-05-21] MEDS: PANTOPRAZOLE 40 MG INJ VIAL IVP SCH (09:37)
[2017-05-21] MEDS: NACL 0.9% 1,000 ML IV SCH ×2 (09:38→16:40)
--- NOTE | 2017-05-21 11:30 | NUR ---
PATIENT LYING IN BED WATCHING TV. NO DISTRESS NOTED. RESPIRATIONS EVEN, UNLABORED, ROOM AIR. DENIES ANY PAIN AT THIS TIME. SCROTAL WOUND GAUZE REMOVED AND LEFT OPEN TO AIR PER MD ORDERS. SCROTAL SUPPORT PROVIDED VIA TOWEL. IV PATENT AND INFUSING. SAFETY MEASURES IN PLACE, CALL LIGHT WITHIN REACH. WILL CONTINUE TO MONITOR.
[2017-05-21 13:00] VITALS: BP 122/73
--- NOTE | 2017-05-21 13:00 | NUR ---
WOUND CARE EVALUATION: REASON FOR EVALUATION: SCROTUM ULCERATIONS COMPLETE SKIN ASSESSMENT DONE ON THIS 46Y/O MALE PATIENT FROM HOME TO [facility], WITH INITIAL DIAGNOSIS OF PAIN AND SWELLING ON SCROTUM AREAS. PT. WAS TREATED ON 05/11/2017 FOR SIMILAR CONDITION. PAST MEDICAL HISTORY INCLUDE DIABETES. ALL ABOVE INFORMATION WAS OBTAINED FROM THE ADMISSION H&P. LABS ARE WBC 9.6, H/H 13.7/40.2, POC GLUCOSE 156, PT/INR 11.0/1.1AND ALBUMIN 3.2. CURRENT MEDS INCLUDE CEFTRIAXONE, CLINDAMYCIN INSULIN AND MORPHINE. PATIENT IS AWAKE, ALERT AND ABLE TO FOLLOW COMMANDS. SKIN WARM TO TOUCH WNL, TOENAILS ARE SLIGHTLY THICKENED, NO EDEMA,, WITH HAIR GROWTH BLE AND BILATERAL PEDAL PULSES PRESENT, URINE AND BOWEL CONTINENT. PLAN OF CARE DISCUSSED WITH PRIMARY RN. INTEGUMENTARY: SKIN WARM AND DRY, WNL. SKIN INTACT. SCROTUM AREA MULTIPLE ULCERATIONS: ERYTHEMA, PURULENT DRAINAGE, NO ODOR, PAINFUL TO TOUCH, PAIN LEVEL 3/10 RECOMMENDATIONS: -CONSULT WITH SURGEON FOR POSSIBLE I&D -CLEANSE SCROTUM ULCERATION AREAS WITH SOAP AND WATER, PAT DRY, APPLY BACTROBAN OINTMENT COVER WITH DRY DRESSING BID WC -TURN AND REPOSITION PATIENT Q2H -ASSESS AND MONITOR SKIN CONDITION DURING POSITION CHANGE -OFFLOAD BILATERAL HEELS BY PLACING PILLOWS UNDER CALVES AT ALL TIMES, UNLESS OTHERWISE CONTRAINDICATED -KEEP SKIN CLEAN AND DRY AT ALL TIMES. -PRESSURE REDISTRIBUTION SURFACE THERAPY. RECOMMENDATIONS DISCUSSED WITH PRIMARY RN AND WILL FOLLOW UP PATIENT Q7 DAYS AND PRN. PLEASE CONTACT WOUND CARE NURSE FOR ANY CONCERNS AND CHANGES IN WOUND CONDITION.
--- NOTE | 2017-05-21 14:00 | NUR ---
05/21/17 RD INITIAL ASSESSMENT COMPLETED PLEASE REFER TO NUTRITION ASSESSMENT UNDER CARE ACTIVITY FOR ESTIMATED NUTRITIONAL NEEDS. 1. CONTINUE 60G CONSISTENT CARBOHYDRATE DIET 2. ADD VITAMIN C 250 MG/DAY (FOR WOUND HEALING) 2. RD TO FOLLOW-UP 3-5 DAYS, MODERATE RISK REYNA DIAZ, MANOJ
[2017-05-21 16:00] VITALS: BP 126/77
--- NOTE | 2017-05-21 17:00 | NUR ---
DR. TAVARES AT BEDSIDE FOR UROLOGIST CONSULT. DR. TAVARES PACKED WOUND AND EXPLAINED POSSIBLE I&D SURGERY IF ABSCESS DOES NOT GET BETTER. WILL CONTINUE TO MONITOR.
--- NOTE | 2017-05-21 17:35 | NUR ---
DR. RAMON AT BEDSIDE REVIEWING PLAN OF CARE WITH PATIENT. POSSIBLE I&D SURGERY TOMORROW. PATIENT AWARE AND VERBALIZED UNDERSTANDING. WILL CONTINUE TO MONITOR.
--- NOTE | 2017-05-21 18:15 | NUR ---
PATIENT LYING COMFORTABLY WATCHING TV. NO ACUTE DISTRESS. RESPIRATIONS EVEN, UNLABORED, ON ROOM AIR. DENIES ANY PAIN OR DISCOMFORTS AT THIS TIME. SCROTAL SUPPORT WITH TOWELS IN PLACE. SAFETY MEASURES IN PLACE, CALL LIGHT WITHIN REACH. WILL CONTINUE TO MONITOR.
--- NOTE | 2017-05-21 19:20 | NUR ---
REPORT GIVEN TO BAKER DOUGHNUT NURSE. PATIENT IN STABLE CONDITION.
--- NOTE | 2017-05-21 19:21 | NUR ---
RECEIVED PATIENT REPORT AT BEDSIDE FROM MORNING NURSE. PATIENT AWAKE, ALERT, AND ORIENTED. PATIENT RESTING IN BED COMFORTABLY AND CURRENTLY SPEAKING ON THE PHONE. NO SIGNS AND SYMPTOMS OF DISTRESS NOTED. IV SITE NOTED ON RIGHT FOREARM. IVF INFUSING WELL. BED IN LOWEST POSITION, SIDE RAILS UP AND CALL LIGHT WITHIN REACH.
[2017-05-21 20:00] VITALS: BP 137/77
[2017-05-22] VITALS: BP 110/68
--- NOTE | 2017-05-22 | NUR ---
CHECKED ON PATIENT. PATIENT IS ASLEEP. NO SIGNS AND SYMPTOMS OF DISTRESS NOTED. BREATHING EVEN AND UNLABORED. WILL CONTINUE TO MONITOR
[2017-05-22] MEDS: NACL 0.9% 1,000 ML IV SCH ×3 (02:11→19:58)
[2017-05-22 04:00] VITALS: BP 100/64
[2017-05-22] MEDS: CLINDAMYCIN 900 MG in DEXTROSE 5% 100 ML IV SCH ×3 (04:30→20:52)
[2017-05-22 06:15] LABS: CHLAMYDIA TRACHOMATIS AMP DNA Negative (Negative)
[2017-05-22] MEDS: BLOOD GLUCOSE MONITORING 1 DEV DEV FS SCH ×4 (06:32→20:52)
--- NOTE | 2017-05-22 07:23 | NUR ---
PATIENT REPORT GIVEN AT BEDSIDE TO MORNING NURSE. PATIENT IN STABLE CONDITION
--- NOTE | 2017-05-22 07:24 | NUR ---
PATIENT LYING IN BED COMFORTABLY. NO DISTRESS NOTED. AAOX4, RESPIRATIONS EVEN, UNLABORED, ON ROOM AIR. LUNGS ARE CTA ON ALL LOBES. SCROTAL DRAINAGE NOTED WITH 3 ABSCESS POINTS, SCROTAL EDEMA NOTED. SCROTAL WOUND IS PACKED, AND IS SUPPORTED WITH TOWELS. DENIES ANY PAIN AND ANY DISCOMFORTS AT THIS TIME. IV ON RIGHT FOREARM INTACT, PATENT, AND INFUSING WITHOUT ANY COMPLICATIONS. SAFETY MEASURES IN PLACE, CALL LIGHT WITHIN REACH, BED RAILS UP X2, BED WHEELS LOCKED. WILL CONTINUE TO MONITOR.
--- NOTE | 2017-05-22 07:40 | NUR ---
DR TAVARES AT BEDSIDE FOR EVAL, PER DR TAVARES, NO I&D TODAY, DC NPO, OK FOR PT TO EAT, PACKING CHANGE WITH IODAFORM DAILY.
[2017-05-22 08:00] VITALS: BP 126/81
[2017-05-22] MEDS: PANTOPRAZOLE 40 MG INJ VIAL IVP SCH (08:57)
--- NOTE | 2017-05-22 09:00 | NUR ---
PATIENT LYING IN BED COMFORTABLY. NO DISTRESS NOTED. RESPIRATIONS EVEN, UNLABORED, ON ROOM AIR. IV PATENT AND INFUSING. DIET CHANGED TO CCHO 60 GMS FROM NPO DUE TO CANCELLATION OF I&D SURGERY PLAN TODAY. ORDERED LATE BREAKFAST TRAY FOR PATIENT. NO COMPLAINTS OF PAIN OR DISCOMFORTS AT THIS TIME. MEDICATIONS DUE GIVEN. SAFETY MEASURES IN PLACE, CALL LIGHT WITHIN REACH. WILL CONTINUE TO MONITOR.
--- NOTE | 2017-05-22 11:40 | NUR ---
PATIENT LYING IN BED WITH FAMILY MEMBER AT BEDSIDE. NO DISTRESS NOTED. RESPIRATIONS EVEN, UNLABORED, ON ROOM AIR. SCROTUM CONTINUES TO BE SUPPORTED WITH TOWELS PER MD ORDERS. DENIES ANY PAIN OR DISCOMFORTS AT THIS TIME. IV IS PATENT AND INFUSING. SAFETY MEASURES IN PLACE, CALL LIGHT WITHIN REACH. WILL CONTINUE TO MONITOR.
[2017-05-22 12:00] VITALS: BP 109/76
[2017-05-22] MEDS: INSULIN LISPRO SLIDING SCALE 100 UNITS/ML VIAL SUBQ PRN (12:22)
--- NOTE | 2017-05-22 13:40 | NUR ---
PATIENT LYING IN BED WITH FAMILY MEMBER AT BEDSIDE. NO DISTRESS NOTED. RESPIRATIONS EVEN, UNLABORED, ON ROOM AIR. NO COMPLAINTS OF PAIN OR DISCOMFORTS AT THIS TIME. MEDICATIONS DUE GIVEN. WOUND DRESSING CHANGED ON SCROTAL ULCERATIONS PER MD ORDERS, MINIMAL AMOUNTS OF PURULENT DRAINAGE NOTED, NO ODOR. IV INTACT, PATENT AND INFUSING. SAFETY MEASURES IN PLACE, CALL LIGHT WITHIN REACH, WILL CONTINUE TO MONITOR.
[2017-05-22 16:00] VITALS: BP 125/73
--- NOTE | 2017-05-22 17:00 | NUR ---
PATIENT LYING IN BED COMFORTABLY WATCHING TV. NO DISTRESS NOTED. DENIES ANY PAIN OR DISCOMFORTS AT THIS TIME. IV INTACT, PATENT AND INFUSING. SAFETY MEASURES IN PLACE, CALL LIGHT WITHIN REACH. WILL CONTINUE TO MONITOR.
[2017-05-22] MEDS: BACITRACIN ZINC/POLYMYXIN B OINT 30 GM TUBE TP SCH (17:34)
--- NOTE | 2017-05-22 19:20 | NUR ---
REPORT GIVEN TO LABOR RELATIONS SPECIALIST NURSE. PATIENT IN STABLE CONDITION.
--- NOTE | 2017-05-22 19:30 | NUR ---
RECEIVED REPORT FROM AM NURSE. PT RESTING IN BED, AOX4, AMBULATORY, ABLE TO VERBALIZE NEEDS. PT DENIES PAIN OR S/S OF ACUTE DISTRESS. CUSTOMER CARE PROFESSIONAL IN PLACE. SCROTAL ABSCESS NOTED, PT DENIES PAIN AT THIS TIME. IV ACCESS ASYMPTOMATIC, PATENT AND INTACT. IVF INFUSING WELL. DISCUSSED AND REVIEWED PLAN OF CARE WITH PT. PT VERBALIZED UNDERSTANDING. ALL NEEDS MET. IVF INFUSING WELL. SAFETY MEASURES ENSURED. CALL LIGHT WITHIN REACH. WILL CONTINUE TO MONITOR.
[2017-05-22 20:00] VITALS: BP 130/85
--- NOTE | 2017-05-22 20:53 | NUR ---
BLOOD SUGAR 113, NO INSULIN COVERAGE NEEDED. ADMINISTERED DUE MED WITH EDUCATION. PT VERBALIZED UNDERSTANDING. IVPB INFUSING WELL. ALL NEEDS MET. SAFETY MEASURES ENSURED. CALL LIGHT WITHIN REACH. WILL CONTINUE TO MONITOR.
[2017-05-23] VITALS: BP 117/69
--- NOTE | 2017-05-23 00:13 | NUR ---
PT SLEEPING COMFORTABLY, NO S/S OF ACUTE DISTRESS. ALL NEEDS MET. IVF INFUSING WELL. SAFETY MEASURES ENSURED. CALL LIGHT WITHIN REACH. WILL CONTINUE TO MONITOR.
[2017-05-23 04:00] VITALS: BP 121/76
[2017-05-23] MEDS: CLINDAMYCIN 900 MG in DEXTROSE 5% 100 ML IV SCH ×3 (04:16→20:18)
[2017-05-23] MEDS: NACL 0.9% 1,000 ML IV SCH ×3 (04:16→19:23)
--- NOTE | 2017-05-23 04:19 | NUR ---
PT SLEEPING COMFORTABLY, NO S/S OF ACUTE DISTRESS. ADMINISTERED DUE MED WITH EDUCATION. PT VERBALIZED UNDERSTANDING. IVPB INFUSING WELL. ALL NEEDS MET. SAFETY MEASURES ENSURED. CALL LIGHT WITHIN REACH. WILL CONTINUE TO MONITOR.
[2017-05-23 06:27] LABS: BASOPHILS # (AUTO) 0.2 K/uL (0.00-0.22); BASOPHILS % (AUTO) 2.2 % (0.0-2.0); EOSINOPHILS # (AUTO) 0.4 K/uL (0-0.4); EOSINOPHILS % (AUTO) 5.1 % (0.0-4.0); HEMATOCRIT 40.8 % (36-52); HEMOGLOBIN 13.6 g/dL (12.0-18.0); MEAN CORPUSCULAR HEMOGLOBIN 30 pg (27-31); MEAN CORPUSCULAR HGB CONC 33 g/dL (33-37); MEAN CORPUSCULAR VOLUME 90 fL (80-94); MONOCYTES # (AUTO) 0.7 K/uL (0.8-1.0); MONOCYTES % (AUTO) 8.4 % (1.7-9.3); NEUTROPHILS # (AUTO) 3.5 K/uL (1.8-7.7); NEUTROPHILS % (AUTO) 46.3 % (42.2-75.2); PLATELET COUNT (AUTO) 540 K/uL (140-450); RED BLOOD CELL COUNT(AUTO) 4.54 MIL/uL (4.20-6.10); RED CELL DISTRIBUTION WIDTH 11.6 % (11.6-13.7); WHITE BLOOD COUNT (AUTO) 7.8 K/uL (4.8-10.8)
[2017-05-23 06:55] LABS: ANION GAP 12.3 (8-16); CARBON DIOXIDE 30.2 mmol/L (21-32); CREATININE 0.9 mg/dL (0.7-1.3); POTASSIUM 4.5 mmol/L (3.5-5.1)
[2017-05-23] MEDS: BLOOD GLUCOSE MONITORING 1 DEV DEV FS SCH ×4 (07:15→20:33)
--- NOTE | 2017-05-23 07:15 | NUR ---
ASSUMED CONTINUITY OF CARE. NO SIGNS AND SYMPTOMS OF ACUTE DISTRESS NOTED. INITIAL ASSESSMENT DONE. ELEVATED SCROTUM WITH PILLOW CASE. KEEP COMFORTABLE ON BED. EXPLAINED DIAGNOSIS, PLAN OF CARE, PAIN MANAGEMENT TEACHING, USE OF CALL LIGHT/BED/BATHROOM. VERBALIZED UNDERSTANDING. CALL LIGHT WITHIN REACH.
--- NOTE | 2017-05-23 07:20 | NUR ---
ENDORSED PLAN OF CARE TO AM NURSE. CONDITION STABLE.
[2017-05-23 08:00] VITALS: BP 118/79
--- NOTE | 2017-05-23 08:00 | NUR ---
Patient's Plan of Care was discussed and reviewed with RESPIRATORY THERAPY AIDE: SRAVANTHI WHITNEY
[2017-05-23] MEDS: BACITRACIN ZINC/POLYMYXIN B OINT 30 GM TUBE TP SCH (08:46)
[2017-05-23] MEDS: PANTOPRAZOLE 40 MG INJ VIAL IVP SCH (08:54)
--- NOTE | 2017-05-23 11:35 | NUR ---
AMBULATES ON HALLWAY WITHOUT ASSISTANCE. TOLERATED WELL. NO C/O PAIN. NO SOB, NOTED.
[2017-05-23 12:00] VITALS: BP 138/78
[2017-05-23] MEDS: INSULIN LISPRO SLIDING SCALE 100 UNITS/ML VIAL SUBQ PRN ×3 (12:09→20:58)
[2017-05-23 16:00] VITALS: BP 123/80
--- NOTE | 2017-05-23 16:00 | NUR ---
VITAL SIGNS STABLE. NO C/O PAIN. CONTINUE MONITORING. CALL LIGHT WITHIN REACH.
--- NOTE | 2017-05-23 19:18 | NUR ---
BEDSIDE REPORT GIVEN TO LISBET LEE. IVF INFUSING WELL. IN STABLE CONDITION.
--- NOTE | 2017-05-23 19:25 | NUR ---
RECEIVED REPORT FROM DAY RN, PATIENT RESTING IN BED, AWAKE ALERT ORIENTED X4, NO S/S OF ACUTE DISTRESS NOTED, RESPIRATION EVEN AND UNLABORED, IV INTACT AND PATENT, INFUSING NS AT 110ML/HR. PLAN OF CARE DISCUSSED, PATIENT VERBALIZED UNDERSTANDING. CALL LIGHT WITHIN REACH, SAFETY MEASURE ENSURED, WILL CONTINUE TO MONITOR.
[2017-05-23 20:00] VITALS: BP 123/75
--- NOTE | 2017-05-23 20:21 | NUR ---
CLEOCIN STARTED, PATIENT TOLERATED WELL. WILL CONTINUE TO MONITOR.
[2017-05-24 00:08] VITALS: BP 128/70
--- NOTE | 2017-05-24 00:34 | NUR ---
NO CHANGE IN CONDITION. VITAL SIGNS STABLE, NO S/S OF ACUTE DISTRESS NOTED, RESPIRATION EVEN AND UNLABORED, WILL CONTINUE TO MONITOR.
--- NOTE | 2017-05-24 03:33 | NUR ---
PATIENT IS SLEEPING AT THIS TIME, NO S/S OF ACUTE DISTRESS NOTED, RESPIRATION EVEN AND UNLABORED, CALL LIGHT WITHIN REACH, SAFETY MEASURE ENSURED, WILL CONTINUE TO MONITOR.
[2017-05-24] MEDS: CLINDAMYCIN 900 MG in DEXTROSE 5% 100 ML IV SCH ×2 (04:20→13:02)
--- NOTE | 2017-05-24 04:23 | NUR ---
CLEOCIN STARTED, PATIENT TOLERATED WELL. NO S/S OF ACUTE DISTRESS NOTED, RESPIRATION EVEN AND UNLABORED, WILL CONTINUE TO MONITOR.
[2017-05-24] MEDS: BLOOD GLUCOSE MONITORING 1 DEV DEV FS SCH ×2 (06:30→11:29)
--- NOTE | 2017-05-24 06:44 | NUR ---
PATIENT IS SLEEPING AT THIS TIME. SCROTUM IS STILL SUPPORTED VIA THE PILLOW CASE. NO S/S OF ACUTE DISTRESS NOTED, CALL LIGHT WITHIN REACH, SAFETY MEASURE ENSURED, WILL CONTINUE TO MONITOR.
--- NOTE | 2017-05-24 07:25 | NUR ---
ASSUMED CONTINUITY OF CARE. NO SIGNS AND SYMPTOMS OF ACUTE DISTRESS NOTICED. INITIAL ASSESSMENT DONE. KEEP COMFORTABLE ON BED. EXPLAINED DIAGNOSIS, PLAN OF CARE, PAIN MANAGEMENT TEACHING, WOUND CARE, USE OF CALL LIGHT/BED/TV/BATHROOM. VERBALIZED UNDERSTANDING. CALL LIGHT WITHIN REACH.
--- NOTE | 2017-05-24 07:27 | NUR ---
ENDORSED PLAN OF CARE TO DAY RN, PATIENT RESTING IN BED, NO S/S OF ACUTE DISTRESS, PATIENT IS IN STABLE CONDITION.
[2017-05-24 08:00] VITALS: BP 128/74
[2017-05-24 08:00] LABS: BASOPHILS # (AUTO) 0.3 K/uL (0.00-0.22); BASOPHILS % (AUTO) 3.8 % (0.0-2.0); EOSINOPHILS # (AUTO) 0.4 K/uL (0-0.4); EOSINOPHILS % (AUTO) 4.6 % (0.0-4.0); HEMATOCRIT 42.9 % (36-52); HEMOGLOBIN 14.1 g/dL (12.0-18.0); LYMPHOCYTES # (AUTO) 2.3 K/uL (2.0-11.5); MEAN CORPUSCULAR HEMOGLOBIN 30 pg (27-31); MEAN CORPUSCULAR HGB CONC 33 g/dL (33-37); MEAN CORPUSCULAR VOLUME 91 fL (80-94); MONOCYTES # (AUTO) 0.6 K/uL (0.8-1.0); MONOCYTES % (AUTO) 7.5 % (1.7-9.3); NEUTROPHILS # (AUTO) 4.1 K/uL (1.8-7.7); NEUTROPHILS % (AUTO) 54.1 % (42.2-75.2); PLATELET COUNT (AUTO) 515 K/uL (140-450); RED BLOOD CELL COUNT(AUTO) 4.74 MIL/uL (4.20-6.10); RED CELL DISTRIBUTION WIDTH 11.8 % (11.6-13.7); WHITE BLOOD COUNT (AUTO) 7.7 K/uL (4.8-10.8)
[2017-05-24] MEDS: NACL 0.9% 1,000 ML IV SCH (09:02)
[2017-05-24] MEDS: BACITRACIN ZINC/POLYMYXIN B OINT 30 GM TUBE TP SCH (09:03)
[2017-05-24] MEDS: PANTOPRAZOLE 40 MG INJ VIAL IVP SCH (09:13)
[2017-05-24] MEDS: INSULIN LISPRO SLIDING SCALE 100 UNITS/ML VIAL SUBQ PRN (11:30)
[2017-05-24 12:00] VITALS: BP 132/83
--- NOTE | 2017-05-24 13:50 | NUR ---
DR. HOWELL CAME AND SPOKE TO PT., AND PT. DAUGHTER BOYFRIEND -ANTWON WITH ASSISTANCE FROM [employer] MERCER -JONELLE AND EXPLAINED D/C INSTRUCTIONS AND TEACHING, WOUND CARE, MD PRESCRIPTION THAT WILL BE ARRANGED TO PT. PREFERRED PHARMACY, PRIMARY CARE PHYSICIAN FOLLOW-UP. PT., PT. DAUGHTER, AND PT. DAUGHTER BOYFRIEND -ANTWON VERBALIZED UNDERSTANDING.
--- NOTE | 2017-05-24 13:51 | NUR ---
Social Service Note: Patient's health insurance is [employer] restricted, therefore, does not cover home health services. However, I was able to contact a home health company ([employer]) that sometimes accepts inquiries as marco referrals. [facility] , phone number . Per Nellie from [facility], they have accepted inquiry as a marco referral and will send a nurse to patient's home tomorrow, I informed Nellie patient will be provided with wound care supplies. I spoke with patient and informed him of above information, he verbalized understanding and was appreciative. I verified his home address and phone number listed on face sheet. Per patient's nurse Jhoan, patient will be provided with wound care supplies.
[2017-05-24] MEDS ORDERED: INFLUENZA VIRUS VACCINE QUAD 0.5 ML SYR IMVAC SCH (14:20)
[2017-05-24] MEDS ORDERED: METF1000 PO (14:26)
[2017-05-24] MEDS ORDERED: INUL1CTB PO (14:26)
[2017-05-24] MEDS ORDERED: POLYO TP (14:26)
[2017-05-24] MEDS ORDERED: CLIN300C2 PO (14:26)
--- NOTE | 2017-05-24 14:45 | NUR ---
EXPLAINED PT., PT. DAUGHTER WITH ASSISTANCE FROM PT. DAUGHTER BOYFRIEND -ANTWON ABOUT MD D/C ORDER, D/C INSTRUCTIONS AND TEACHING, MD PRESCRIPTION LIST EDUCATION, WOUND CARE EDUCATION, MD FOLLOW-UP, DIABETIC TEACHING, DIET, PAIN MANAGEMENT TEACHING. THEY VERBALIZED UNDERSTANDING.
--- NOTE | 2017-05-24 15:00 | NUR ---
WOUND CARE SUPPLIES FOR 2 WEEKS PROVIDED TO PT.. PT. AND PT. DAUGHTER RECEIVED AND KEPT IN PLASTIC BAG.
--- NOTE | 2017-05-24 15:30 | NUR ---
D/C HOME VIA WHEELCHAIR ACCOMPANIED BY PT. DAUGHTER. AWAKE, ALERT, AND ORIENTED X. SPEECH CLEAR. NO C/O PAIN. NO SOB, NOTED. IN STABLE CONDITION. INFORMED CHARGE NURSE DIANA LEE.
--- NOTE | 2017-05-25 14:09 | NUR ---
SPOKE TO YOVANNY AT [facility], STATED THAT MANUEL IS OUT TO LUNCH. AND GAVE THE FAX NUMBER TO FAX THE ORDER FOR [facility] AND ORDER FAXED TO [phone].
== END 2017-05-24 15:30 | disposition home health service (06) | DRG 501 ==
LOC: MED 11:27 → MTU 13:22 → MMU 14:17 → MTU 14:19
PROVIDERS: ADMIT Student in an Organized Health Care Education/Training Program; ATTEND Student in an Organized Health Care Education/Training Program
DX: N49.2 Inflammatory disorders of scrotum (principal); N17.0 Acute kidney failure with tubular necrosis; E44.0 Moderate protein-calorie malnutrition; E83.42 Hypomagnesemia; D68.59 Other primary thrombophilia; E11.65 Type 2 diabetes mellitus with hyperglycemia; I10 Essential (primary) hypertension; N50.3 Cyst of epididymis; N43.3 Hydrocele, unspecified; D47.3 Essential (hemorrhagic) thrombocythemia; E78.5 Hyperlipidemia, unspecified; F17.210 Nicotine dependence, cigarettes, uncomplicated; R80.9 Proteinuria, unspecified; Z68.26 Body mass index [BMI] 26.0-26.9, adult; Z83.3 Family history of diabetes mellitus; Z79.82 Long term (current) use of aspirin; Z79.4 Long term (current) use of insulin
CPT/HCPCS: 36415; 71010; 72193; 76870; 80048; 80053; 80305; 81001; 82140; 82550; 82948; 83036; 83605; 83615; 83735; 83880; 84100; 84436; 84443; 84479; 85025; 85610; 85730; 87040; 87070; 87075; 87077; 87081; 87186; 87491; 90658; 93005; 96365; 96368; 99285; C9113; G0482; J0696; J1815; J2543; J3370; J3475; J3490; J7030; J7060; Q0092

== ENCOUNTER 2021-12-31 18:07 | Emergency (ER) | payer MEDICAID ==
[~2021-12-31] VITALS: Ht 157.5 cm; Wt 74.4 kg
[~2021-12-31 18:07] MED LIST changes: -ASPI-1173 PO; +ASPI-1856 PO; +CLIN300C2 PO; +INUL1CTB PO; -LACT10CA PO; -LEVO750T2 PO; -LISI-424 PO; +LISI5TAB24 PO; +METF-1061 PO; +METF-1243 PO; -METF500T4 PO; +POLYO TP
[2021-12-31 18:35] VITALS: BP 118/59
[2021-12-31 18:48] LABS: BASOPHILS # (AUTO) 0.1 K/uL (0.00-0.22); BASOPHILS % (AUTO) 0.6 % (0.0-2.0); EOSINOPHILS # (AUTO) 0.2 K/uL (0-0.4); EOSINOPHILS % (AUTO) 2.6 % (0.0-4.0); HEMATOCRIT 42.3 % (36-52); HEMOGLOBIN 14.3 g/dL (12.0-18.0); LYMPHOCYTES # (AUTO) 2.9 K/uL (2.0-11.5); MEAN CORPUSCULAR HEMOGLOBIN 30 pg (27-31); MEAN CORPUSCULAR HGB CONC 34 g/dL (33-37); MONOCYTES # (AUTO) 0.7 K/uL (0.8-1.0); MONOCYTES % (AUTO) 7.4 % (1.7-9.3); NEUTROPHILS # (AUTO) 5.2 K/uL (1.8-7.7); NEUTROPHILS % (AUTO) 57.4 % (42.2-75.2); PLATELET COUNT (AUTO) 273 K/uL (140-450); RED CELL DISTRIBUTION WIDTH 12.9 % (11.6-13.7)
[2021-12-31] MEDS: LIDOCAINE MPF 1% 10 MG/ML VIAL INJ ONE (18:55)
[2021-12-31 19:08] LABS: ALBUMIN 3.8 g/dL (3.4-5.0); ASPARTATE AMINOTRANSFERASE 18 U/L (15-37); CARBON DIOXIDE 27.2 mmol/L (21-32); CHLORIDE 102 mmol/L (98-107); CREATININE 0.9 mg/dL (0.6-1.3); GFR ARICAN-AMERICAN 115 mL/min (>90); GLUCOSE 249 mg/dL (74-106); POTASSIUM 4.2 mmol/L (3.5-5.1); SODIUM SERUM 136 mmol/L (136-145); TOTAL BILIRUBIN 0.2 mg/dL (0.0-1.0); UREA NITROGEN, BLOOD 22 mg/dL (7-18)
[2021-12-31] MEDS ORDERED: CHLO118S1 TP (21:07)
[2021-12-31] MEDS ORDERED: ACET-8386 PO (21:07)
[2021-12-31] MEDS ORDERED: IBUP-2213 PO (21:07)
[2021-12-31] MEDS ORDERED: BACTO TP (21:07)
[2021-12-31] MEDS ORDERED: SULF-59 PO (21:07)
[2021-12-31] MEDS: BACITRACIN OINT 500 UNITS/GM PKT TP ONE (21:21)
[2021-12-31 21:36] VITALS: BP 112/66
== END 2021-12-31 21:36 | disposition home or self-care (01) ==
LOC: MED 18:07
DX: R55 Syncope and collapse (principal); L03.012 Cellulitis of left finger; E11.9 Type 2 diabetes mellitus without complications; I10 Essential (primary) hypertension; Z79.899 Other long term (current) drug therapy; Z79.891 Long term (current) use of opiate analgesic; Z79.1 Long term (current) use of non-steroidal anti-inflammatories (NSAID); Z79.2 Long term (current) use of antibiotics; Z79.84 Long term (current) use of oral hypoglycemic drugs
CPT/HCPCS: 26011; 36415; 80053; 84484; 85025; 93005; 99284; J2001